=== PATIENT | female | born 1990 | race Caucasian/White ===

== ENCOUNTER 2019-06-25 20:57 | Emergency (ER) | payer MEDICAID ==
[~2019-06-25] VITALS: Ht 157.5 cm; Wt 47.2 kg
[2019-06-25 21:04] VITALS: BP 117/41
== END 2019-06-25 21:40 | disposition home or self-care (01) ==
LOC: ER 20:58
DX: R09.81 Nasal congestion (principal)
CPT/HCPCS: 99281

== ENCOUNTER 2021-09-24 09:51 | Emergency (ER) | payer MEDICAID, OTHER ==
[~2021-09-24] VITALS: Ht 157.5 cm; Wt 52.0 kg
[2021-09-24 10:01] VITALS: BP 96/56
[2021-09-24 11:13] LABS: URINE HCG NEGATIVE (NEG)
[2021-09-24 11:25] LABS: BASOPHILS # (AUTO) 0.1 X10'3 (0-0.2); BASOPHILS % (AUTO) 1.2 % (0-1); EOSINOPHILS # (AUTO) 0.4 X10'3 (0-0.9); EOSINOPHILS % (AUTO) 8.2 % (0-6); HEMATOCRIT 40.5 % (35.0-45.0); HEMOGLOBIN 13.8 g/dl (12.0-16.0); LYMPHOCYTES # (AUTO) 1.5 X10'3 (1.1-4.8); LYMPHOCYTES % (AUTO) 31.4 % (21-51); MEAN CORPUSCULAR HEMOGLOBIN 29.9 PG (27.0-31.0); MEAN CORPUSCULAR HGB CONC 34.2 g/dL (33.0-36.5); MEAN CORPUSCULAR VOLUME 87.4 FL (78-98); MEAN PLATELET VOLUME 7.5 FL (7.4-10.4); MONOCYTES # (AUTO) 0.4 X10'3 (0-0.9); MONOCYTES % (AUTO) 8.5 % (2-12); NEUTROPHILS # (AUTO) 2.5 X10'3 (1.8-7.7); NEUTROPHILS % (AUTO) 50.7 % (42-75); PLATELET COUNT 263 X10'3 (140-440); RED BLOOD COUNT 4.64 X10'6 (4.20-5.60); RED CELL DISTRIBUTION WIDTH 12.9 % (11.5-14.5); WHITE BLOOD COUNT 4.9 X10'3 (4.5-11.0)
[2021-09-24 11:28] LABS: CLARITY,URINE CLEAR (Clear); COLOR,URINE YELLOW (Yellow); GLUCOSE, URINE NEGATIVE (Neg); KETONES,URINE 15 mg/dl (Neg); LEUKOCYTE ESTERASE ,URINE NEGATIVE (Neg); OCCULT BLOOD,URINE LARGE (Neg); PROTEIN,URINE 100 mg/dl (Neg)
[2021-09-24 11:33] LABS: UA COLLECTION TYPE VOIDED
[2021-09-24 11:35] LABS: NITRITES, URINE NEGATIVE (Neg)
[2021-09-24 11:37] LABS: BACTERIA,URINE 1+ /HPF (Neg); RBC,URINE TNTC /HPF (0-2); SQUAMOUS EPITHELIAL CELL,UR FEW /LPF (FEW)
[2021-09-24 11:47] LABS: ALBUMIN 3.9 G/DL (3.4-5.0); ALKALINE PHOSPHATASE 51 IU/L (46-116); ANION GAP 6 (8-16); BLOOD UREA NITROGEN 9 MG/DL (7-18); BUN/CREATININE RATIO 14.1 (6.6-38.0); CALCIUM 8.9 MG/DL (8.5-10.1); CHLORIDE 102 MMOL/L (99-107); CREATININE 0.64 MG/DL (0.40-0.90); GLUCOSE 83 MG/DL (70-104); POTASSIUM 3.6 MMOL/L (3.5-5.1); SODIUM 136 MMOL/L (135-145); TOTAL CARBON DIOXIDE 28.2 MMOL/L (24-32); TOTAL PROTEIN 7.8 G/DL (6.4-8.2); eGFR > 90 ML/MIN
[2021-09-24 11:48] LABS: ALANINE AMINOTRANSFERASE 20 U/L (12-78); ASPARTATE AMINO TRANSFERASE 16 U/L (10-37); BILIRUBIN,TOTAL 0.5 MG/DL (0.1-1.0)
== END 2021-09-24 12:23 | disposition home or self-care (01) ==
LOC: ER 09:51
DX: R31.9 Hematuria, unspecified (principal); R05.9 Cough, unspecified; R11.2 Nausea with vomiting, unspecified; R50.9 Fever, unspecified; F12.90 Cannabis use, unspecified, uncomplicated; Z72.89 Other problems related to lifestyle
CPT/HCPCS: 36415; 80053; 81001; 81025; 85025; 87088; 99283

== ENCOUNTER 2021-10-15 12:26 | Emergency (ER) | payer BC, OTHER ==
[~2021-10-15] VITALS: Ht 157.5 cm; Wt 52.0 kg
[2021-10-15 13:01] LABS: CLARITY,URINE CLOUDY (Clear); COLOR,URINE YELLOW (Yellow); GLUCOSE, URINE NEGATIVE (Neg); KETONES,URINE 15 mg/dl (Neg); LEUKOCYTE ESTERASE ,URINE NEGATIVE (Neg); NITRITES, URINE NEGATIVE (Neg); OCCULT BLOOD,URINE LARGE (Neg); PH,URINE 8.5 (4.8-8.0); PROTEIN,URINE 30 mg/dl (Neg); UROBILINOGEN,URINE 0.2 E.U/dL (0.2-1.0)
[2021-10-15 13:03] LABS: URINE HCG NEGATIVE (NEG)
[2021-10-15 13:08] LABS: UA COLLECTION TYPE CLN CATCH MIDSTREAM
[2021-10-15 13:10] LABS: BACTERIA,URINE FEW /HPF (Neg); MUCUS STRANDS MODERATE /LPF (Neg); RBC,URINE TNTC /HPF (0-2); SQUAMOUS EPITHELIAL CELL,UR FEW /LPF (FEW)
[2021-10-15 13:16] LABS: BASOPHILS % (AUTO) 0.4 % (0-1); EOSINOPHILS # (AUTO) 0.2 X10'3 (0-0.9); EOSINOPHILS % (AUTO) 2.2 % (0-6); HEMATOCRIT 42.7 % (35.0-45.0); HEMOGLOBIN 14.5 g/dl (12.0-16.0); LYMPHOCYTES # (AUTO) 0.9 X10'3 (1.1-4.8); MEAN CORPUSCULAR HEMOGLOBIN 29.5 PG (27.0-31.0); MEAN CORPUSCULAR VOLUME 86.9 FL (78-98); MEAN PLATELET VOLUME 7.9 FL (7.4-10.4); MONOCYTES # (AUTO) 0.4 X10'3 (0-0.9); MONOCYTES % (AUTO) 3.9 % (2-12); NEUTROPHILS # (AUTO) 7.7 X10'3 (1.8-7.7); NEUTROPHILS % (AUTO) 83.5 % (42-75); PLATELET COUNT 262 X10'3 (140-440); RED BLOOD COUNT 4.91 X10'6 (4.20-5.60); RED CELL DISTRIBUTION WIDTH 13.1 % (11.5-14.5); WHITE BLOOD COUNT 9.2 X10'3 (4.5-11.0)
[2021-10-15 13:27] LABS: ALANINE AMINOTRANSFERASE 16 U/L (12-78); ALBUMIN 4.2 G/DL (3.4-5.0); ALBUMIN/GLOBULIN RATIO 1.1 (1.1-1.5); ALKALINE PHOSPHATASE 54 IU/L (46-116); ANION GAP 8 (8-16); ASPARTATE AMINO TRANSFERASE 16 U/L (10-37); BILIRUBIN,TOTAL 0.4 MG/DL (0.1-1.0); BLOOD UREA NITROGEN 10 MG/DL (7-18); BUN/CREATININE RATIO 16.4 (6.6-38.0); CALCIUM 8.9 MG/DL (8.5-10.1); CHLORIDE 105 MMOL/L (99-107); CREATININE 0.61 MG/DL (0.40-0.90); GLUCOSE 93 MG/DL (70-104); LIPASE 137 U/L (73-393); POTASSIUM 3.5 MMOL/L (3.5-5.1); SODIUM 140 MMOL/L (135-145); TOTAL CARBON DIOXIDE 26.8 MMOL/L (24-32); TOTAL PROTEIN 8.2 G/DL (6.4-8.2); eGFR > 90 ML/MIN
[2021-10-15 14:21] VITALS: BP 116/66
[2021-10-15] MEDS ORDERED: normal saline 1000ml 1,000 ML IVB ONE (16:55)
[2021-10-15] MEDS ORDERED: cefTRIAXone 1g/NS 100ml IVPB 100 ML IV ONE (16:55)
[2021-10-15] MEDS ORDERED: tamsulosin 0.4mg capsule PO SCH (17:10)
[2021-10-15] MEDS ORDERED: HYDR-3965 PO ×2 (18:02→18:06)
[2021-10-15] MEDS ORDERED: CEPH250T PO (18:02)
[2021-10-15] MEDS ORDERED: FLO0.4C PO (18:02)
== END 2021-10-15 19:30 | disposition home or self-care (01) ==
LOC: ER 12:27
DX: N20.1 Calculus of ureter (principal); N13.30 Unspecified hydronephrosis; R10.84 Generalized abdominal pain; F12.90 Cannabis use, unspecified, uncomplicated; Z72.89 Other problems related to lifestyle; Z79.2 Long term (current) use of antibiotics; Z79.899 Other long term (current) drug therapy
CPT/HCPCS: 36415; 74176; 80053; 81001; 81025; 83690; 85025; 87088; 96365; 99284; J0696; J7030

== ENCOUNTER 2021-10-19 06:18 | Emergency (ER) | payer BC, MEDICAID ==
[~2021-10-19] VITALS: Ht 157.5 cm; Wt 52.2 kg
[~2021-10-19 06:18] MED LIST: CEPH250T PO; FLO0.4C PO; HYDR-3965 PO
--- NOTE | 2021-10-19 06:44 | NUR ---
In the middle of intake, pt received a call from her physician stating that she needed to go to [facility] for her surgery. Pt left and a cab was called for [facility] to get [facility].
[2021-10-19 06:45] VITALS: BP 120/73
[2021-10-19 06:58] LABS: CLARITY,URINE CLOUDY (Clear); COLOR,URINE YELLOW (Yellow); GLUCOSE, URINE NEGATIVE (Neg); KETONES,URINE NEGATIVE (Neg); LEUKOCYTE ESTERASE ,URINE NEGATIVE (Neg); NITRITES, URINE NEGATIVE (Neg); OCCULT BLOOD,URINE TRACE-INTACT (Neg); PROTEIN,URINE NEGATIVE (Neg); UROBILINOGEN,URINE 0.2 E.U/dL (0.2-1.0)
[2021-10-19 07:01] LABS: UA COLLECTION TYPE NON-SPECIFIED
[2021-10-19 07:03] LABS: SQUAMOUS EPITHELIAL CELL,UR MANY /LPF (FEW)
[2021-10-19 07:04] LABS: HYALINE CASTS 0-3 /LPF (NEGATIVE); MUCUS STRANDS FEW /LPF (Neg)
[2021-10-19 07:05] LABS: TRANSITIONAL EPI CELLS,URINE FEW /HPF
[2021-10-19 07:06] LABS: BACTERIA,URINE 1+ /HPF (Neg)
== END 2021-10-19 06:52 | disposition left against medical advice (07) ==
LOC: ER 06:19
DX: N20.0 Calculus of kidney (principal); Z53.21 Procedure and treatment not carried out due to patient leaving prior to being seen by health care provider
CPT/HCPCS: 81001

== ENCOUNTER 2024-09-06 06:41 | Day surgery (SDC) | payer MEDICAID ==
[2024-09-06] VITALS (15 sets, daily range): BP systolic 95–121; BP diastolic 54–76; PULSE 62–88; RESP 8–17; TEMP 98.8; O2SAT 95–99
[~2024-09-06] VITALS: Ht 157.5 cm; Wt 54.5 kg
[2024-09-06] MEDS: ceFAZolin 2gm in dextrose, iso 50 ML IV ONE (05:30)
[~2024-09-06 06:41] MED LIST changes: -CEPH250T PO; -FLO0.4C PO; -HYDR-3965 PO; +IBUP-49 PO
[2024-09-06] MEDS: famotidine 20mg tablet PO ONE (07:03)
[2024-09-06] MEDS: ringers solution, lacted 1,000 ML IV SCH ×2 (07:03→10:04)
[2024-09-06 07:28] LABS: BASOPHILS # (AUTO) 0.1 X10'3 (0-0.2); BASOPHILS % (AUTO) 0.9 % (0-1); EOSINOPHILS # (AUTO) 0.3 X10'3 (0-0.9); EOSINOPHILS % (AUTO) 4.3 % (0-6); LYMPHOCYTES # (AUTO) 1.8 X10'3 (1.1-4.8); LYMPHOCYTES % (AUTO) 24.2 % (21-51); MEAN CORPUSCULAR HEMOGLOBIN 30.4 PG (27.0-31.0); MEAN CORPUSCULAR HGB CONC 34.5 g/dL (33.0-36.5); MEAN CORPUSCULAR VOLUME 88.1 FL (78-98); MEAN PLATELET VOLUME 7.8 FL (7.4-10.4); MONOCYTES # (AUTO) 0.5 X10'3 (0-0.9); NEUTROPHILS # (AUTO) 4.6 X10'3 (1.8-7.7); NEUTROPHILS % (AUTO) 63.6 % (42-75); PRE OP HEMATOCRIT 41.4 % (35.0-45.0); PRE OP HEMOGLOBIN 14.3 g/dL (12.0-16.0); PRE OP PLATELET COUNT 303 X10'3 (140-440); PRE OP WHITE BLOOD COUNT 7.3 10'3 (4.8-10.8); RED CELL DISTRIBUTION WIDTH 13.2 % (11.5-14.5)
[2024-09-06] MEDS ORDERED: iohexol 300 MG/1 ML 50ml polymer ONE (07:28)
[2024-09-06 08:05] LABS: ALBUMIN 3.6 G/DL (3.4-5.0); ALBUMIN/GLOBULIN RATIO 0.9 (1.1-1.5); ALKALINE PHOSPHATASE 69 IU/L (46-116); BLOOD UREA NITROGEN 14 MG/DL (7-18); BUN/CREATININE RATIO 21.2 (10.0-20.0); CALCIUM 8.7 MG/DL (8.5-10.1); CHLORIDE 105 MMOL/L (99-107); CREATININE 0.66 MG/DL (0.40-0.90); PRE OP ALT 16 U/L (30-65); PRE OP ANION GAP 8 (8-16); PRE OP AST 15 U/L (10-37); PRE OP BILIRUB, TOTAL 0.4 MG/DL (0.0-1.0); PRE OP GLUCOSE 91 MG/DL (70-104); PRE OP POTASSIUM 3.8 MMOL/L (3.4-5.1); PRE OP SODIUM 138 MMOL/L (135-145); TOTAL CARBON DIOXIDE 25.2 MMOL/L (24-32); TOTAL PROTEIN 7.4 G/DL (6.4-8.2); eCRCL 93 ML/MIN; eGFR > 90 ML/MIN
[2024-09-06] MEDS ORDERED: midazolam 1 mg/ML 2ml injection ONE (08:08)
[2024-09-06] MEDS ORDERED: fentaNYL/PF 50MCG/1 ML 2ML syringe ONE (08:08)
[2024-09-06] MEDS ORDERED: propofol inj 20 ML IV ONE (08:08)
[2024-09-06] MEDS ORDERED: sevoflurane 250ml liquid IH ONE (08:09)
[2024-09-06] MEDS ORDERED: HYDROmorphone/PF 0.2 MG/ML SYRINGE IV PRN ×2 (08:50)
[2024-09-06] MEDS ORDERED: meperidine/PF 25mg/ml syringe IV PRN (08:50)
[2024-09-06] MEDS ORDERED: morphine 4 MG/ML inj SYRINge IV PRN (08:50)
[2024-09-06] MEDS ORDERED: morphine 2 MG/ML inj. syringe IV PRN (08:50)
[2024-09-06] MEDS ORDERED: ondansetron/PF 4mg/2ml inj IV PRN (08:50)
[2024-09-06] MEDS ORDERED: ketorolac trometh 30MG/ML vial 30 MG/ML VIAL ONE (08:52)
[2024-09-06] MEDS ORDERED: ondansetron/PF 4mg/2ml inj ONE (08:52)
[2024-09-06] MEDS ORDERED: dexamethasone sod phosphate 4mg/ml inj. ONE (08:52)
[2024-09-06] MEDS: iohexol 300 MG/1 ML 10ml vial IJ ONE (08:55)
[2024-09-06] MEDS: acetaminophen 1,000mg/100ml IV 100 ML IV PRN (09:37)
[2024-09-06] MEDS: phenazopyridine 100mg tablet PO ONE (09:55)
[2024-09-06] MEDS: HYDROcodone/acetaminophen 5mg/325mg tablet PO ONE (10:06)
== END 2024-09-06 11:56 | disposition home or self-care (01) ==
LOC: PRE-OP 06:41
PROVIDERS: ATTEND Urology
DX: N20.2 Calculus of kidney with calculus of ureter (principal); Z79.899 Other long term (current) drug therapy; Z98.890 Other specified postprocedural states
CPT/HCPCS: 36415; 52356; 74420; 80053; 82948; 85025; C2617; J0131; J0690; J1100; J1885; J2250; J2405; J2704; J3010; J7030; J7120; Q9967; Z7506; Z7508; Z7512; 76000; A4618; A7000; C1894

== ENCOUNTER 2024-09-08 20:34 | Emergency (ER) | payer MEDICAID ==
[~2024-09-08] VITALS: Ht 157.5 cm; Wt 56.0 kg
[2024-09-08 20:37] VITALS: BP 120/78; PULSE 114; RESP 18; TEMP 98.6; O2SAT 99
== END 2024-09-08 21:42 | disposition home or self-care (01) ==
LOC: ER 20:35
DX: R50.82 Postprocedural fever (principal); R31.9 Hematuria, unspecified; F12.90 Cannabis use, unspecified, uncomplicated; Z79.1 Long term (current) use of non-steroidal anti-inflammatories (NSAID); Z72.89 Other problems related to lifestyle
CPT/HCPCS: 99281

== ENCOUNTER 2024-09-09 15:09 | Emergency (ER) | payer MEDICAID ==
[~2024-09-09] VITALS: Ht 157.5 cm; Wt 54.5 kg
[2024-09-09 15:43] VITALS: BP 104/57; PULSE 114; RESP 18; TEMP 98.6; O2SAT 97
[2024-09-09 16:25] LABS: BILIRUBIN,URINE SMALL (Neg); CLARITY,URINE TURBID (Clear); COLOR,URINE RED (Yellow); GLUCOSE, URINE NEGATIVE (Neg); KETONES,URINE NEGATIVE (Neg); LEUKOCYTE ESTERASE ,URINE MODERATE (Neg); NITRITES, URINE NEGATIVE (Neg); OCCULT BLOOD,URINE LARGE (Neg); PH,URINE 6.5 (4.8-8.0); PROTEIN,URINE 100 mg/dl (Neg); UROBILINOGEN,URINE 0.2 E.U/dL (0.2-1.0)
[2024-09-09 16:31] LABS: UA COLLECTION TYPE CLN CATCH MIDSTREAM
[2024-09-09 16:33] LABS: BACTERIA,URINE 1+ /HPF (Neg); MUCUS STRANDS FEW /LPF (Neg); RBC,URINE TNTC /HPF (0-2); SQUAMOUS EPITHELIAL CELL,UR FEW /LPF (FEW)
== END 2024-09-09 19:07 | disposition left against medical advice (07) ==
LOC: ER 15:10
DX: R50.9 Fever, unspecified (principal); Z53.21 Procedure and treatment not carried out due to patient leaving prior to being seen by health care provider
CPT/HCPCS: 36415; 81001; 83605; 87040; 87088